=== PATIENT | male | born 1950 | race Caucasian/White ===

== ENCOUNTER 2016-12-19 12:00 | Emergency (ER) | payer OTHER ==
[~2016-12-19 12:00] MED LIST: ACCUNEB INH; ACID REDUCER; ASAB PO; COREG12 PO; COREG25 PO; CYANO1000T PO; CYANOCOBALAMIN; DUONEB INH; FISH-EPA1000 MG PO; HALF81 PO; ISOSORB DIN30 MG PO; KLOR-CON M1010 MEQ PO; L20 PO; LEVAQUIN750 MG PO; LIPITOR40 PO; LIPITOR80 MG PO; LORTAB10 PO; NORV5 PO; P10 PO; P20 PO; PEP20 PO; PEPCID40 MG PO; PERFOROM INH; PLAVIX PO; PRAVAC PO; PRAVACHOL40 MG PO; PROVHFA INH; PULRESP.25 INH; SPIRIVA INH; SYMBICORT 160/41 INH INH; T PO; TUDORZA PRESS400 MCG INH; VENTOLIN HFA INH; VITAMIN B-122500 MCG PO; VITAMIN B-122500 MCG SL; VITAMIN D31000 UNIT PO; X5 PO; XANAX1 MG PO; ZESTORETIC1 TA1 PO; ZESTRIL20 MG PO; ZOCOR20 PO
== END 2016-12-19 12:07 | disposition home or self-care (01) ==
LOC: ER 12:00
DX: M70.21 Olecranon bursitis, right elbow (principal); F17.200 Nicotine dependence, unspecified, uncomplicated; J44.9 Chronic obstructive pulmonary disease, unspecified; Z95.1 Presence of aortocoronary bypass graft; Z79.82 Long term (current) use of aspirin; Z79.899 Other long term (current) drug therapy; Z79.52 Long term (current) use of systemic steroids
CPT/HCPCS: 87070; 87205; 99283